=== PATIENT | male | born 1985 | race Caucasian/White ===

== ENCOUNTER 2020-12-19 20:33 | Emergency (ER) | payer SELFPAY ==
[2020-12-19 20:34] VITALS: BP 128/79; PULSE 113; RESP 15; TEMP 36.8; O2SAT 98; BMI 29.2
[2020-12-19] MEDS: 0.9% Normal Saline 1,000 ML 1000 ML IV (21:25)
[2020-12-19] MEDS: Ondansetron 4 MG/2 ML Vial IV (21:25)
[2020-12-19] MEDS: Mag Hydrox/Al Hydrox/Simeth 30 ML UDC PO (21:25)
[2020-12-19 21:35] LABS: Absolute Lymphocyte Count 1.31 X10^3/uL (0.83-4.51); Absolute Neutrophil Count 7.5 X10^3/uL (2.0-7.7); Basophil# 0.04 X10^3/uL; Basophil% 0.4 % (0-1); Eosinophil# 0.04 X10^3/uL; Eosinophils% 0.4 % (0-5); Hematocrit 47.4 % (40-54); Hemoglobin 16.3 g/dL (13.0-16.5); Lymphocyte # 1.31 X10^3/ul (0.83-4.51); Lymphocyte % 13.4 % (19-41); Mean Corp Hgb Conc 34.4 g/dL (32-36); Mean Corpuscular Hgb 30.2 pg (27.0-32.0); Mean Corpuscular Volume 87.8 fL (80-94); Mean Platelet Vol. 10.3 fl (6.2-12.0); Monocyte# 0.77 X10^3/uL; Monocyte% 7.9 % (0-10); NRBC Flagged by Analyzer 0 % (0-5); Neutrophil # 7.54 X10^3/uL (2.7-7.7); Neutrophil % 77.5 % (47-70); Platelet Count 220 K/mm3 (150-450); RBC Distribution Width CV 12.7 % (11.6-14.6); RBC Distribution Width SD 41.1 fl (35.1-43.9); White Blood Count 9.7 K/mm3 (4.4-11.0)
--- NOTE | 2020-12-19 21:35 | EDS_ITS ---
HPI History of Present Illness Chief Complaint: Abd Pain Informant: patient Narrative Narrative: Patient is a 35-year-old male who presents to the emergency department for abdominal pain, nausea/vomiting and diarrhea. Symptoms have been present over the past 3 days. He states that he was recently treated for H. pylori infection 1 month ago and completed course of antibiotics. He did have a colonoscopy at that time which was negative for Crohn's disease. He states he was improved until the past few days. He has not been take anything for symptoms. He has diffuse abdominal pain. Currently rates as a 7 out of 10. No one spot hurts worse than another. No other abdominal surgeries. He denies any urinary symptoms. No chest pain or shortness of breath. No fevers or chills. No known sick contacts. He has not been coughing. [facility] Medical History (Updated 12/19/20 @ 22:[address] Andres Hayward DO) H. pylori infection Hepatomegaly Home Medications pantoprazole [Protonix] 40 mg PO DAILY #30 tab 12/19/20 [Rx Last Taken Unknown] Allergy/AdvReac Type Severity Reaction Status Date / Time No Known Allergies Allergy Verified 12/19/20 20:34 Surgical History (Updated 12/19/20 @ 20:58 by Johnnie Trevino) History of colonoscopy History of endoscopy Social History Smoking Status: Never smoker ROS ROS ED Constitutional Constitutional ED: Denies chills or fever(s) Eyes Eyes: Denies change in vision ENT ENT ED: Denies epistaxis or rhinorrhea Cardiovascular Cardiovascular: Denies chest pain or palpitations Respiratory/Chest Respiratory/Chest: Denies cough, dyspnea or dyspnea on exertion Gastrointestinal Gastrointestinal: Reports abdominal pain, diarrhea, nausea and vomiting; Denies constipation or melena Genitourinary Genitourinary ED: Denies dysuria, hematuria or urinary frequency Musculoskeletal Musculoskeletal: Denies back pain or neck pain Integumentary Denies rash Neurologic Neurologic: Denies dizziness, headache(s) or weakness EXAM Physical Exam Const Vital Signs: 12/19/20 20:34 12/19/20 22:20 Temperature 98.2 F Temperature Source Temporal Pulse Rate 113 H 88 Respiratory Rate 15 16 Blood Pressure 128/79 H 114/73 Blood Pressure Mean 95 86 Pulse Ox 98 95 Oxygen Delivery Method Room Air Room Air Positive well nourished and well developed General Appearance ED: well developed and NAD HEENT Reports normocephalic, head/scalp atraumatic and moist mucous membranes Eyes PERRL and EOMs intact bilaterally Neck supple Chest Wall inspection of chest normal Resp normal respiratory effort and clear to auscultation bilaterally Auscultation: Negative for rales, rhonchi or wheezes Cardio regular rate, regular rhythm and no murmurs GI normal to inspection, nondistended, normoactive bowel sounds GI Narrative: Diffuse tenderness. Negative Wright sign. No peritoneal signs. Palpation: soft; Negative for guarding or rebound tenderness present Back/Spine no CVA tenderness Extremity normal to inspection General Extremety ED: Negative for edema or tenderness General Extremity: Negative for edema Neuro oriented x3, CN's II-XII intact bilaterally and no sensory deficits noted Sensorium / Orientation: alert Motor Exam: strength 5/5 throughout Psych mental status grossly normal Skin no rashes or lesions noted MDM MDM MDM Narrative Medical decision making narrative: Patient presents to ED for diffuse abdominal pain nausea/vomiting and diarrhea. Is been going for 3 days. On arrival to the ED he is tachycardic but otherwise normal vital signs. He is in no acute distress. Besides abdominal tenderness he has a benign physical exam. Will check basic lab work and treat symptomatically with a dose of Zofran, GI cocktail and IV fluids. Patient's heart rate has come down with IV fluids. On reexamination he is feeling much better. He feels like the GI cocktail gave him good relief. He does not have a high white blood cell count. Electrolytes within normal limits. Only ALT is mildly elevated. Lipase within normal limits. We will treat him symptomatically at home with a prescription for Protonix. He is given referral for PCP as he is new to the area. Return precautions are reviewed. At this time I have low concern for intra-abdominal surgical pathology. No imaging indicated. Discharged home in stable condition. All questions were answered. Lab Data Labs: Laboratory Results - last 24 hr 12/19/20 12/19/20 21:25 21:25 WBC 9.7 RBC 5.40 Hgb 16.3 Hct 47.4 MCV 87.8 MCH 30.2 MCHC 34.4 RDW Std Deviation 41.1 RDW Coeff of Andrey 12.7 Plt Count 220 MPV 10.3 Immature Gran % (Auto) 0.400 Neut % (Auto) 77.5 H Lymph % (Auto) 13.4 L Barron % (Auto) 7.9 Eos % (Auto) 0.4 Baso % (Auto) 0.4 Absolute Neuts (auto) 7.5 Absolute Lymphs (auto) 1.31 Nucleated RBC % 0 Sodium 137 Potassium 3.5 Chloride 104 Carbon Dioxide 25.0 Anion Gap 8 BUN 12 Creatinine 1.17 Estim Creat Clear Calc 90.12 Est GFR (MDRD) Af Amer 91 Est GFR (MDRD) Non-Af 75 BUN/Creatinine Ratio 10.3 Glucose 108 H Calcium 8.8 Total Bilirubin 0.80 AST 37 ALT 92 H Alkaline Phosphatase 82 Total Protein 7.5 Albumin 3.7 Globulin 3.8 Albumin/Globulin Ratio 1.0 Lipase 98 Discharge Plan Triage Chief Complaint: Abd Pain ED Provider: Andres Hayward Dx/Rx/DC Orders Clinical Impression: Abdominal pain Instructions: Abdominal Pain Prescriptions: New pantoprazole [Protonix] 40 mg tablet,delayed release (DR/EC) 40 mg PO DAILY Qty: 30 RF: 0 Primary Care Provider: Care Physician,No Primary Referrals: Ann Marie Parra MD [STAFF PHYSICIAN] - 3-5 Days Care Physician,No Primary [Primary Care Provider] - Disposition Disposition: Home, Self Care Discharge Date/Time: 12/19/20 22:25
[2020-12-19 21:53] LABS: AST(SGOT) 37 U/L (15-37); Alanine Aminotransfer ALT/SGPT 92 U/L (16-61); Albumin, Serum 3.7 g/dL (3.2-5.0); Alkaline Phosphatase 82 U/L (45-117); Anion Gap 8 (5-15); BUN 12 mg/dL (7-18); BUN/Creat Ratio 10.3 RATIO (10-20); Calcium,Total 8.8 mg/dL (8.5-10.1); Chloride 104 mmol/L (98-107); Creatinine, Serum 1.17 mg/dL (0.70-1.30); EST Glomerular Filtration Rate 75 mL/min (>60); Est Glom Filt Rate - Afr Amer 91 mL/min (>60); Estimated Creatinine Clearance 90.12 ml/min; Globulin 3.8 g/dL (2.2-4.2); Glucose 108 mg/dL (74-106); Lipase 98 U/L (73-393); Potassium 3.5 mmol/L (3.5-5.1); Protein, Total 7.5 g/dL (6.4-8.2); Sodium Level 137 mmol/L (136-145)
[2020-12-19 22:20] VITALS: BP 114/73; PULSE 88; RESP 16; O2SAT 95
== END 2020-12-19 22:25 | disposition home or self-care (01) ==
PROVIDERS: Emergency Provider Emergency Medicine
DX: R10.84 Generalized abdominal pain (principal); R11.2 Nausea with vomiting, unspecified; R19.7 Diarrhea, unspecified
CPT/HCPCS: 80053; 83690; 85025; 96361; 96374; 99284; J7030; J2405

== ENCOUNTER → 2021-10-10 | Outpatient (CLI) | payer MEDICAID, SELFPAY ==
[2021-10-10 16:10] LABS: Absolute Lymphocyte Count 2.32 X10^3/uL (0.83-4.51); Absolute Neutrophil Count 3.1 X10^3/uL (2.0-7.7); Basophil% 1.6 % (0-1); Eosinophil# 0.31 X10^3/uL; Eosinophils% 4.8 % (0-5); Hematocrit 51.2 % (40-54); Hemoglobin 17.6 g/dL (13.0-16.5); Lymphocyte # 2.32 X10^3/ul (0.83-4.51); Lymphocyte % 36.2 % (19-41); Mean Corp Hgb Conc 34.4 g/dL (32-36); Mean Corpuscular Hgb 29.8 pg (27.0-32.0); Mean Corpuscular Volume 86.8 fL (80-94); Monocyte# 0.57 X10^3/uL; Monocyte% 8.9 % (0-10); NRBC Flagged by Analyzer 0 % (0-5); Neutrophil % 48.3 % (47-70); Platelet Count 298 K/mm3 (150-450); RBC Distribution Width CV 12.5 % (11.6-14.6); RBC Distribution Width SD 39.8 fl (35.1-43.9); White Blood Count 6.4 K/mm3 (4.4-11.0)
[2021-10-10 16:16] LABS: International Normalized Ratio 0.9
[2021-10-10 16:29] LABS: Erythrocyte Sedimentation Rate 4 mm/hr (0-20)
[2021-10-10 16:40] LABS: ALB/GLOB Ratio 1.2 RATIO (0.9-2.4); AST(SGOT) 34 U/L (15-37); Alanine Aminotransfer ALT/SGPT 84 U/L (16-61); Albumin, Serum 4.4 g/dL (3.2-5.0); Alkaline Phosphatase 73 U/L (45-117); Anion Gap 6 (5-15); BUN 10 mg/dL (7-18); BUN/Creat Ratio 10.5 RATIO (10-20); CRP < 2.90 mg/L (0.0-3.0); Calcium,Total 9.3 mg/dL (8.5-10.1); Chloride 103 mmol/L (98-107); Creatinine, Serum 0.96 mg/dL (0.70-1.30); EST Glomerular Filtration Rate 94 mL/min (>60); Est Glom Filt Rate - Afr Amer 114 mL/min (>60); Ferritin 123 ng/mL (26-388); Globulin 3.7 g/dL (2.2-4.2); Glucose 86 mg/dL (74-106); LDH 189 U/L (87-241); Potassium 3.9 mmol/L (3.5-5.1); Protein, Total 8.1 g/dL (6.4-8.2); Sodium Level 138 mmol/L (136-145)
[2021-10-10 16:43] LABS: Hemoglobin A1c 5.3 % (3.8-5.6)
[2021-10-10 17:03] LABS: HIV - WCH Non-Reactive (Nonreactive)
[2021-10-14 14:09] LABS: Anti-Centromere B Ab <0.2 AI (0.0-0.9); Anti-Chromatin <0.2 AI (0.0-0.9); Anti-Jo <0.2 AI (0.0-0.9); Anti-Scleroderma-70 AB <0.2 AI (0.0-0.9); RNP Ab <0.2 AI (0.0-0.9); SJOGREN'S Anti-SS-A test < 0.2 AI (0.0-0.9); SJOGREN'S Anti-SS-B test < 0.2 AI (0.0-0.9); Smith Ab <0.2 AI (0.0-0.9)
[2021-10-14 15:22] LABS: Anti-Mitochondrial AB <20.0 Units (0.0-20.0); Anti-dsDNA Ab 9 IU/mL (0-9)
[2021-10-17 06:09] LABS: Angiotensin Convert Enzyme 54 U/L (14-82); Ceruloplasmin 18.6 mg/dL (16.0-31.0); Cytoplasmic Ab (C-ANCA) <1:20 titer (Neg:<1:20); HEPATITIS B SURFACE AG Negative (Negative); Hep C Antibodies <0.1 s/co ratio (0.0-0.9); Hepatitis A IgM Antibody Negative (Negative); Hepatitis B Core AB IgM Negative (Negative)
[2021-10-17 10:39] LABS: AFP, Tumor Marker 6.2 ng/mL (0.0-6.9); Anti-Smooth Muscle ABS 8 Units (0-19); Copper, Serum or Plasma 111 ug/dL (69-132); Haptoglobin 107 mg/dL (17-317); Perinuclear Ab (P-ANCA) <1:20 titer (Neg:<1:20)
== END | disposition home or self-care (01) ==
LOC: LAB 15:35
PROVIDERS: Referring Provider Nurse Practitioner Adult Health; Visit Provider Nurse Practitioner Adult Health
DX: K76.0 Fatty (change of) liver, not elsewhere classified (principal)
CPT/HCPCS: 36415; 80053; 80074; 82105; 82140; 82164; 82390; 82525; 82728; 83010; 83036; 83516; 83615; 85025; 85610; 85652; 86140; 86225; 86235; 86256; 86703

== ENCOUNTER → 2021-10-12 | Outpatient (CLI) | payer MEDICAID, SELFPAY ==
[2021-10-15 16:31] LABS: H. PYLORI STOOL AG Negative (Negative)
== END | disposition home or self-care (01) ==
LOC: LABSPEC 13:50
PROVIDERS: Visit Provider Nurse Practitioner Adult Health
DX: R10.9 Unspecified abdominal pain (principal); Z86.19 Personal history of other infectious and parasitic diseases

== ENCOUNTER 2021-10-13 21:01 | Emergency (ER) | payer MEDICAID, SELFPAY ==
[2021-10-13 21:02] VITALS: BP 122/90; PULSE 91; RESP 16; TEMP 36.6; O2SAT 97; BMI 28.7
--- NOTE | 2021-10-13 21:51 | CT_ITS ---
STUDY: CT ABDOMEN AND PELVIS WITH CONTRAST REASON FOR EXAM: Male, 35 years old. Epigastric abdominal pain x several months, constipation. RADIATION DOSAGE (If Supplied By Facility): CTDIvol = ( 13.74 ) mGy, DLP = ( 1085.32 ) mGycm TECHNIQUE: Transaxial images were obtained from the dome of the diaphragm to the symphysis pubis without oral contrast. IV 100mL Isovue-300 was administered. Sagittal and coronal images were reconstructed. Individualized dose optimization techniques were used for this CT. COMPARISON: None. FINDINGS: The visualized lung bases are unremarkable. The visualized portions of the heart are within normal limits. There is decreased attenuation of the liver consistent with steatosis. Normal gallbladder and extrahepatic biliary system. Normal spleen. Normal pancreas. Normal bilateral adrenal glands. Normal right kidney. Simple left renal cyst. No required imaging follow-up needed given high likelihood of benign nature. Normal visualized stomach. Normal small intestine. Normal colon. The appendix is visualized and appears normal. Normal abdominal aorta. Normal inferior vena cava. Normal retroperitoneum. Normal urinary bladder. Normal abdominal wall. Normal osseous structures. CT/Abdomen/Pelvis W IV Cont ONLY IMPRESSION: No acute inflammatory process or bowel obstruction. Electronically Signed: Natanael Nunez MD ([place]) at 22:50 EDT ,
--- NOTE | 2021-10-13 21:52 | EDS_ITS ---
HPI HPI - GI History of Present Illness Chief Complaint: Abd Pain Narrative Narrative: 35-year-old male presenting with abdominal pain. He describes it as diffuse. He states that this has been going on for months. He states that previously see he was prescribed a laxative which did help when he used it but did not repeat using it. He states he does not take anything for his abdominal pain to treat pain. No ibuprofen or Tylenol. Patient also complaining of xiphoid pain. This is not a new issue either. He states is actually improving and was as big as a golf ball about a month ago. He states he was seen outpatient and a CAT scan was ordered however he has not been called back to have this performed. Patient has not had any fever, chills. He is not vomiting. He does report history of GERD for which he takes Protonix and sulcal fate. [facility] Medical History Constipation Fatty liver H. pylori infection Hepatomegaly History of Helicobacter pylori infection Xiphoid prominence Home Medications escitalopram oxalate 20 mg tablet 20 mg PO DAILY 09/02/21 [History Last Taken Unknown] pantoprazole 40 mg tablet,delayed release 40 mg PO BID #120 tab 10/10/21 [Rx Last Taken Unknown] sucralfate 1 gram tablet 1 g PO QAC #90 tab 10/10/21 [Rx Last Taken Unknown] Allergy/AdvReac Type Severity Reaction Status Date / Time No Known Allergies Allergy Verified 10/13/21 21:04 Surgical History History of colonoscopy History of endoscopy Social History Smoking Status: Never smoker ROS ROS ED Constitutional Constitutional ED: Denies chills or fever(s) ENT ENT ED: Denies rhinorrhea Cardiovascular Cardiovascular: Denies chest pain or palpitations Respiratory/Chest Respiratory/Chest: Denies cough or dyspnea Gastrointestinal Gastrointestinal: Reports abdominal pain and constipation; Denies nausea or vomiting Genitourinary Genitourinary ED: Denies dysuria or hematuria Musculoskeletal Musculoskeletal: Denies myalgias Integumentary Denies rash Neurologic Neurologic: Denies headache(s) Psychiatric Psychiatric: Denies depression Endocrine Endocrinology: Denies polydipsia or polyuria Hematologic/Lymphatic Hematologic/Lymphatic: Denies easy bruising EXAM Physical Exam Const Vital Signs: 10/13/21 21:02 Temperature 98 F Temperature Source Temporal Pulse Rate 91 Respiratory Rate 16 Blood Pressure 122/90 H Blood Pressure Mean 100 Pulse Ox 97 Oxygen Delivery Method Room Air Positive well nourished General Appearance ED: NAD HEENT normocephalic and atraumatic Eyes PERRL and EOMs intact bilaterally General Eye ED: Negative for pale conjunctiva or scleral icterus Neck No no lymphadenopathy and No supple Chest Wall Chest Narrative: Tenderness over the xiphoid. No deformity Resp normal respiratory effort and clear to auscultation bilaterally Cardio regular rate and regular rhythm GI non-distended Palpation: soft; Negative for guarding or rigid Neuro Sensorium / Orientation: alert, oriented to person, oriented to place and oriented to time Psych mental status grossly normal and thought process normal Skin Lesions: no lesions Rashes: no rashes MDM MDM MDM Narrative Medical decision making narrative: Patient presenting with chronic abdominal pain and history of constipation as well as tenderness over his xiphoid. Abdominal exam is benign. Patient expressing concern that his abdomen is hurting worse. He is not tried anything for pain prior to arrival. He has not tried any kind of stool softener or laxative for his constipation. I obtained blood work and his CBC and CMP are unremarkable. Urinalysis negative. CT of the abdomen pelvis negative for any acute findings. Patient counseled his work- up is otherwise normal. He is counseled for his constipation issues she should buy some MiraLAX and use this nightly for a couple of days. As far as his xiphoid pain goes I am unsure what the etiology/source of his pain is but there is nothing acute noted. Patient discharged home in stable condition. Impression: 1. Abdominal pain unknown cause 2. Xiphoid pain 3. History of constipation Lab Data Attestation: I reviewed the patient's lab results. Labs: Laboratory Results - last 24 hr 10/13/21 10/13/21 10/13/21 22:23 22:23 22:23 WBC 9.7 RBC 5.42 Hgb 16.1 Hct 47.0 MCV 86.7 MCH 29.7 MCHC 34.3 RDW Std Deviation 39.8 RDW Coeff of Andrey 12.7 Plt Count 264 MPV 9.7 Immature Gran % (Auto) 0.300 Neut % (Auto) 48.1 Lymph % (Auto) 37.3 Teller % (Auto) 9.3 Eos % (Auto) 4.0 Baso % (Auto) 1.0 Absolute Neuts (auto) 4.7 Absolute Lymphs (auto) 3.63 Nucleated RBC % 0 Sodium 140 Potassium 3.9 Chloride 106 Carbon Dioxide 28.0 Anion Gap 6 BUN 16 Creatinine 1.04 Estim Creat Clear Calc 101.39 Est GFR (MDRD) Af Amer 103 Est GFR (MDRD) Non-Af 86 BUN/Creatinine Ratio 15.4 Glucose 92 Calcium 9.3 Total Bilirubin 0.30 AST 28 ALT 73 H Alkaline Phosphatase 73 Total Protein 7.5 Albumin 4.2 Globulin 3.3 Albumin/Globulin Ratio 1.3 Lipase 187 Urine Color Yellow Urine Clarity Clear Urine pH 6.0 Ur Specific [place] 1.020 Urine Protein 15 H Urine Glucose (UA) Normal Urine Ketones Negative Urine Occult Blood Negative Urine Nitrite Negative Urine Bilirubin Negative Urine Urobilinogen Normal Ur Leukocyte Esterase Negative Urine RBC 0 SEEN Urine WBC 0 SEEN Ur Squamous Epith Cells 0 SEEN Urine Bacteria 0 SEEN Urine Mucus 0 SEEN Radiography Diagnostic Testing: Clinical Impression(s) from Imaging Studies Abdomen/Pelvis CT 10/13/21 21:51 IMPRESSION: No acute inflammatory process or bowel obstruction. Electronically Signed: Natanael Nunez MD ([place]) at 22:50 EDT Reading Location ID and State: [facility] / [place] , Service support , Discharge Plan Triage Chief Complaint: Abd Pain ED Provider: Олег Lopes Dx/Rx/DC Orders Instructions: ED Abdominal Pain Unkn Cause Male... Prescriptions: No Action escitalopram oxalate 20 mg tablet 20 mg PO DAILY RF: 0 pantoprazole [Protonix] 40 mg tablet,delayed release (DR/EC) 40 mg PO BID Qty: 120 RF: 1 sucralfate 1 gram tablet 1 g PO QAC Qty: 90 RF: 0 Primary Care Provider: Care Physician,No Primary Referrals: Care Physician,No Primary [Primary Care Provider] - Disposition Disposition: Home, Self Care
[2021-10-13] MEDS: Ketorolac 15 MG/ML Vial IV (22:18)
[2021-10-13] MEDS: Metoclopramide 10 MG/2 ML Vial IV (22:18)
[2021-10-13] MEDS: 0.9% Normal Saline 1,000 ML 1000 ML IV (22:19)
[2021-10-13 22:28] LABS: Bacteria 0 SEEN /hpf (None Seen); Mucous, Urine 0 SEEN /hpf (<or=2+); Red Blood Cells-Urine 0 SEEN /hpf (0-5); Squamous Epithelial Cells - UA 0 SEEN /hpf (0-5); White Blood Cells 0 SEEN /hpf (0-5)
[2021-10-13 22:29] LABS: Absolute Lymphocyte Count 3.63 X10^3/uL (0.83-4.51); Absolute Neutrophil Count 4.7 X10^3/uL (2.0-7.7); Eosinophil# 0.39 X10^3/uL; Glucose, Dipstick Normal (Normal); Hemoglobin 16.1 g/dL (13.0-16.5); Ketone-Dipstick Negative (Negative); Leukocyte Esterase-Dipstick Negative /ul (Negative); Lymphocyte # 3.63 X10^3/ul (0.83-4.51); Lymphocyte % 37.3 % (19-41); Mean Corp Hgb Conc 34.3 g/dL (32-36); Mean Corpuscular Hgb 29.7 pg (27.0-32.0); Mean Corpuscular Volume 86.7 fL (80-94); Mean Platelet Vol. 9.7 fl (6.2-12.0); Monocyte% 9.3 % (0-10); NRBC Flagged by Analyzer 0 % (0-5); Neutrophil # 4.67 X10^3/uL (2.7-7.7); Neutrophil % 48.1 % (47-70); Nitrite-Dipstick Negative (Negative); Occult Blood-Urine Negative /ul (Negative); Platelet Count 264 K/mm3 (150-450); Protein-Dipstick 15 mg/dl (Negative); RBC Distribution Width CV 12.7 % (11.6-14.6); RBC Distribution Width SD 39.8 fl (35.1-43.9); Red Blood Count 5.42 M/mm3 (4.6-6.2); Urine Bilirubin Dipstick Negative (Negative); Urine Urobilinogen Normal (Normal); White Blood Count 9.7 K/mm3 (4.4-11.0)
[2021-10-13 22:30] LABS: Color, Urine Yellow (Yellow); Urine Clarity Clear (Clear)
[2021-10-13 22:45] LABS: ALB/GLOB Ratio 1.3 RATIO (0.9-2.4); AST(SGOT) 28 U/L (15-37); Alanine Aminotransfer ALT/SGPT 73 U/L (16-61); Albumin, Serum 4.2 g/dL (3.2-5.0); Alkaline Phosphatase 73 U/L (45-117); Anion Gap 6 (5-15); BUN 16 mg/dL (7-18); BUN/Creat Ratio 15.4 RATIO (10-20); Calcium,Total 9.3 mg/dL (8.5-10.1); Chloride 106 mmol/L (98-107); Creatinine, Serum 1.04 mg/dL (0.70-1.30); EST Glomerular Filtration Rate 86 mL/min (>60); Est Glom Filt Rate - Afr Amer 103 mL/min (>60); Estimated Creatinine Clearance 101.39 ml/min; Globulin 3.3 g/dL (2.2-4.2); Glucose 92 mg/dL (74-106); Lipase 187 U/L (73-393); Potassium 3.9 mmol/L (3.5-5.1); Protein, Total 7.5 g/dL (6.4-8.2); Sodium Level 140 mmol/L (136-145)
== END 2021-10-13 23:36 | disposition home or self-care (01) ==
PROVIDERS: Emergency Provider Student in an Organized Health Care Education/Training Program; Visit Provider Student in an Organized Health Care Education/Training Program
DX: R10.84 Generalized abdominal pain (principal); G89.29 Other chronic pain; M94.9 Disorder of cartilage, unspecified; K21.9 Gastro-esophageal reflux disease without esophagitis; Z79.899 Other long term (current) drug therapy
CPT/HCPCS: 74177; 80053; 81001; 83690; 85025; 96361; 96374; 96375; 99283; J7030; Q9967; A4216

== ENCOUNTER → 2021-10-28 | Outpatient (CLI) | payer MEDICAID, SELFPAY ==
--- NOTE | 2021-10-28 09:36 | US_ITS ---
STUDY: ABDOMINAL ULTRASOUND - ELASTOGRAPHY REASON FOR VISIT: Male, 35 years old. Fatty attrition of the liver. TECHNIQUE: Liver stiffness measurements were obtained on a pMDsoft RS 85 ultrasound machine using a CA 1-7 probe following the SRU guidelines. 3 measurements were obtained using a 2-D-SWE method. The IQR/M was 20% suggesting a quality data set. TECHNICAL QUALITY: Adequate. COMPARISON: Comparison is made with prior study done earlier in the day. FINDINGS: Liver: Fatty infiltration of the liver. Median liver stiffness measured 5.7 kPa. US/Elastography Parenchyma/Organ IMPRESSION: Liver stiffness measures 5.7 kPa compatible with F0-F1 (Normal to mild liver fibrosis) Metavir score. Electronically Signed: Humble Denis MD at 9:20 EDT ,
--- NOTE | 2021-10-28 09:36 | US_ITS ---
STUDY: ABDOMINAL ULTRASOUND - RIGHT UPPER QUADRANT REASON FOR VISIT: Male, 35 years old liver eval for elastography TECHNIQUE: Ultrasound evaluation of the right upper quadrant was performed with real-time and static marc-scale imaging. TECHNICAL QUALITY: Adequate. COMPARISON: None. FINDINGS: Liver: The liver measures 15.9 cm. There is increased echogenicity consistent with fatty infiltration. Focal fatty sparing is seen adjacent to the gallbladder fossa. Tithe bile ducts are within normal limits. There is hepatic color flow. The direction of portal flow is hepatopetal. There is no demonstrated mass lesion. Gallbladder: Normal distended gallbladder. The gallbladder wall measures 1.7 mm. There is a negative sonographic Wright''s sign. There is no pericholecystic fluid. There are no gallstones. Common Bile Duct (C.B.D.): The common bile duct measures 3.1 mm. Pancreas: Normal size of the head, body and tail of the pancreas. There is normal echogenicity of the pancreas. There is no demonstrated pancreatic mass or cyst. Right Kidney: Normal size of the right kidney. The right kidney measures 11.3 cm x 5.5 cm x 4.7 cm. Normal renal cortex. The right cortex measures 1.2 cm. There is no demonstrated renal mass or cyst. There is no right hydronephrosis. US/Abdomen Limited IMPRESSION: Fatty infiltration of the liver with focal fatty sparing in the region of the gallbladder fossa. Electronically Signed: Humble Denis MD at 9:18 EDT ,
== END | disposition home or self-care (01) ==
LOC: US 09:35
PROVIDERS: Referring Provider Nurse Practitioner Adult Health; Visit Provider Nurse Practitioner Adult Health
DX: K76.0 Fatty (change of) liver, not elsewhere classified (principal)
CPT/HCPCS: 76705; 76981

== ENCOUNTER 2023-04-27 19:36 | Observation (INO) | payer MEDICAID, SELFPAY ==
[2023-04-27 19:37] VITALS: BP 118/78; PULSE 130; RESP 18; TEMP 37.2; O2SAT 99; BMI 30.6
[2023-04-27 19:55] LABS: Bacteria 0 SEEN /hpf (None Seen); Red Blood Cells-Urine 0 SEEN /hpf (0-5); Squamous Epithelial Cells - UA 0 SEEN /hpf (0-5)
[2023-04-27 19:58] LABS: Absolute Lymphocyte Count 0.73 X10^3/uL (0.83-4.51); Absolute Neutrophil Count 13.7 X10^3/uL (2.0-7.7); Basophil# 0.04 X10^3/uL; Basophil% 0.3 % (0-1); Eosinophil# 0.02 X10^3/uL; Eosinophils% 0.1 % (0-5); Hematocrit 49.2 % (40-54); Hemoglobin 16.7 g/dL (13.0-16.5); Lymphocyte # 0.73 X10^3/ul (0.83-4.51); Lymphocyte % 4.8 % (19-41); Mean Corp Hgb Conc 33.9 g/dL (32-36); Mean Corpuscular Hgb 29.3 pg (27.0-32.0); Mean Corpuscular Volume 86.5 fL (80-94); Monocyte# 0.84 X10^3/uL; Monocyte% 5.5 % (0-10); NRBC Flagged by Analyzer 0 % (0-5); Neutrophil # 13.67 X10^3/uL (2.7-7.7); Platelet Count 270 K/mm3 (150-450); RBC Distribution Width CV 12.7 % (11.6-14.6); RBC Distribution Width SD 39.8 fl (35.1-43.9); Red Blood Count 5.69 M/mm3 (4.6-6.2); White Blood Count 15.3 K/mm3 (4.4-11.0)
[2023-04-27 19:59] LABS: Color, Urine Yellow (Yellow); Glucose, Dipstick Normal (Normal); Ketone-Dipstick 5 mg/dl (Negative); Leukocyte Esterase-Dipstick 25 /ul (Negative); Nitrite-Dipstick Negative (Negative); Occult Blood-Urine Negative /ul (Negative); Protein-Dipstick 15 mg/dl (Negative); Specific Gravity, Urine 1.015 (1.002-1.030); Urine Clarity Clear (Clear); Urine Urobilinogen 4 mg/dl (Normal); Urine pH 6.5 (5.0 - 8.0)
[2023-04-27 20:07] LABS: Urine Bilirubin Dipstick 1 mg/dL (Negative)
[2023-04-27 20:10] LABS: Mucous, Urine 1+ /hpf (<or=2+); White Blood Cells 0-5 SEEN /hpf (0-5)
[2023-04-27 20:14] LABS: ALB/GLOB Ratio 1.1 RATIO (0.9-2.4); AST(SGOT) 23 U/L (15-37); Alanine Aminotransfer ALT/SGPT 72 U/L (16-61); Albumin, Serum 3.9 g/dL (3.2-5.0); Alkaline Phosphatase 82 U/L (45-117); Anion Gap 6 (5-15); BUN 11 mg/dL (7-18); BUN/Creat Ratio 9.2 RATIO (10-20); Chloride 104 mmol/L (98-107); EST Glomerular Filtration Rate 72 mL/min (>60); Est Glom Filt Rate - Afr Amer 87 mL/min (>60); Estimated Creatinine Clearance 86.18 ml/min; Globulin 3.6 g/dL (2.2-4.2); Glucose 112 mg/dL (74-106); Potassium 3.6 mmol/L (3.5-5.1); Protein, Total 7.5 g/dL (6.4-8.2); Sodium Level 137 mmol/L (136-145)
[2023-04-27 21:00] VITALS: BP 113/74; PULSE 134; RESP 22; O2SAT 97
--- NOTE | 2023-04-27 21:07 | CT_ITS ---
EXAM: CT ABDOMEN AND PELVIS WITH INTRAVENOUS CONTRAST CLINICAL INDICATION: RLQ Pain TECHNIQUE: Helically acquired images were obtained of the abdomen and pelvis with intravenous contrast. This CT exam was performed using one or more of the following dose reduction techniques: automated exposure control, adjustment of the mA and/or kV according to patient size, and/or use of iterative reconstruction technique. CONTRAST: IV 100mL Isovue-370 COMPARISON: CT abdomen and pelvis, 10/13/2021 FINDINGS: LOWER THORAX: No significant abnormality. Lung bases are clear. No cardiomegaly. No significant pericardial effusion. ABDOMEN: LIVER: Diffuse low-attenuation throughout the liver consistent with fatty infiltration. Areas of relative sparing are identified. GALLBLADDER AND BILE DUCTS: No significant abnormality. No calcified gallstones. No gallbladder distention or wall edema. No intra- or extrahepatic biliary ductal dilation. PANCREAS: No significant abnormality. No focal cystic or solid mass. SPLEEN: No significant abnormality. Normal size without focal cystic or solid mass. ADRENALS: No significant abnormality. No nodules. KIDNEYS AND URETERS: No significant abnormality. Normal renal size and position. No hydronephrosis. STOMACH AND BOWEL: No significant abnormality. No stomach or bowel distention. No focal inflammatory change. PELVIS: APPENDIX: Normal appendix identified in the right lower quadrant. BLADDER: No significant abnormality. REPRODUCTIVE: Normal as visualized. No mass. ABDOMEN and PELVIS: INTRAPERITONEAL SPACE: No significant abnormality. No ascites or other fluid collection. No free air. BONES/JOINTS: No significant abnormality. No suspicious lytic or blastic abnormality. SOFT TISSUES: No significant abnormality. No discrete abdominal or pelvic wall hernia. VASCULATURE: No significant abnormality. Abdominal aorta is non-dilated. LYMPH NODES: No significant abnormality. No enlarged lymph nodes. CT/Abdomen/Pelvis W IV Cont ONLY IMPRESSION: 1. No evidence of acute appendicitis or other acute visceral pathology in the abdomen and pelvis. 2. Fatty liver. Electronically Signed: Regulo Negrete DO at 21:35 EST ,
--- NOTE | 2023-04-27 21:32 | EDS_ITS ---
HPI History of Present Illness Chief Complaint: Abd Pain Informant: patient and spouse/S.O. Narrative Narrative: 37-year-old male presenting to the emergency department chief complaint of abdominal pain. Patient states that he really has been feeling well up until today. He has developed 3 episodes of diarrhea and a right-sided abdominal pain. He notes a fever and some myalgias. No vomiting. Notes a history of a hiatal hernia. [facility] Medical History Anxiety Constipation Fatty liver H. pylori infection Hepatomegaly History of Helicobacter pylori infection Xiphoid prominence Home Medications escitalopram oxalate 20 mg tablet 20 mg PO DAILY 09/02/21 [History Last Taken Unknown] pantoprazole 40 mg tablet,delayed release (Protonix) 40 mg PO BID #120 tabs 10/10/21 [Rx Last Taken Unknown] linaclotide 290 mcg capsule (Linzess) 290 mcg PO QAM #90 caps 11/21/21 [Rx Last Taken Unknown] desvenlafaxine succinate 50 mg tablet,extended release 24 hr 50 mg PO DAILY 04/27/23 [History Last Taken Unknown] esomeprazole magnesium 20 mg capsule,delayed release (Nexium) 20 mg PO DAILY 04/27/23 [History Last Taken Unknown] Allergy/AdvReac Type Severity Reaction Status Date / Time No Known Allergies Allergy Verified 04/27/23 19:39 Surgical History H/O arthroscopy of shoulder History of colonoscopy History of endoscopy Social History Smoking Status: Never smoker ROS ROS ED Constitutional Constitutional ED: Reports chills and fever(s); Denies weight loss Eyes Eyes: Denies change in vision or diplopia ENT ENT ED: Denies ear pain, rhinorrhea or sore throat Cardiovascular Cardiovascular: Denies chest pain, orthopnea, palpitations or racing heartbeat Respiratory/Chest Respiratory/Chest: Denies cough, dyspnea or orthopnea Gastrointestinal Gastrointestinal: Reports abdominal pain, diarrhea and nausea; Denies vomiting Genitourinary Genitourinary ED: Denies dysuria, hematuria or urinary frequency Musculoskeletal Musculoskeletal: Denies arthralgias or myalgias Integumentary Denies abscess or rash Neurologic Neurologic: Denies headache(s) or weakness Psychiatric Psychiatric: Denies anxiety, depression, suicidal ideation or suicidal thoughts Endocrine Endocrinology: Denies polydipsia, polyphagia or polyuria Allergic/Immunologic Allergic/Immunologic ED: Denies mouth swelling, tongue swelling or urticaria EXAM Physical Exam Const Vital Signs: 04/27/23 19:37 04/27/23 21:00 04/27/23 22:26 Temperature 99.0 F 99.4 F H Temperature Source Temporal Oral Pulse Rate 130 H 134 H Respiratory Rate 18 22 H Blood Pressure 118/78 113/74 Blood Pressure Mean 91 87 Pulse Ox 99 97 Oxygen Delivery Method Room Air Room Air 04/27/23 23:05 Temperature Temperature Source Pulse Rate 121 H Respiratory Rate 27 H Blood Pressure 101/72 Blood Pressure Mean 81 Pulse Ox 91 Oxygen Delivery Method Room Air Positive well nourished and well developed General Appearance ED: well developed HEENT Reports normocephalic, head/scalp atraumatic and moist mucous membranes Eyes PERRL and EOMs intact bilaterally Neck no lymphadenopathy, supple and no JVD Resp normal respiratory effort and clear to auscultation bilaterally Cardio regular rate, regular rhythm and no murmurs Rate: tachycardic GI Inspection: Negative for abdominal distention Auscultation: normoactive bowel sounds Palpation: soft, tender RLQ and RUQ and guarding; Negative for rebound tenderness present Back/Spine no CVA tenderness and normal ROM Extremity normal to inspection General Extremety ED: Negative for edema General Extremity: Negative for edema Neuro oriented x3 and CN's II-XII intact bilaterally Sensorium / Orientation: alert Motor Exam: strength 5/5 throughout Psych mental status grossly normal Mood & Affect: Negative for depressed or tearful Skin no rashes or lesions noted and no wounds MDM MDM MDM Narrative Medical decision making narrative: Patient's white count is elevated at 15.3 hemoglobin 16.7 and platelet count of 270. BMP with a glucose of 112. Liver enzymes ALT is 72. Urinalysis does not show overt infection. Influenza and COVID-negative. My independent interpretation of the chest x-ray is no acute process. CT of the abdomen pelvis demonstrates no acute process. He received a liter of IV fluids.. The patient's temperature is now up to 100.4 orally. He notes worsening pain on the right side of his abdomen. He remains tachycardic at 125-135 bpm. In short I have a 37-year-old male with right-sided abdominal pain and fever and tachycardia. He has a negative CT scan and a mild leukocytosis of 15. I am going to speak with the hospitalist regarding observational stay tonight. History & Record Review Discussion w/independent historian: Patient and Significant other Lab Data Attestation: I reviewed the patient's lab results. Labs: Laboratory Results - last 24 hr 04/27/23 04/27/23 19:47 19:48 WBC 15.3 H RBC 5.69 Hgb 16.7 H Hct 49.2 MCV 86.5 MCH 29.3 MCHC 33.9 RDW Std Deviation 39.8 RDW Coeff of Andrey 12.7 Plt Count 270 MPV 10.0 Immature Gran % (Auto) 0.300 Neut % (Auto) 89.0 H Lymph % (Auto) 4.8 L [place] % (Auto) 5.5 Eos % (Auto) 0.1 Baso % (Auto) 0.3 Absolute Neuts (auto) 13.7 H Absolute Lymphs (auto) 0.73 L Nucleated RBC % 0 Sodium 137 Potassium 3.6 Chloride 104 Carbon Dioxide 27.0 Anion Gap 6 BUN 11 Creatinine 1.20 Estim Creat Clear Calc 86.18 Est GFR (MDRD) Af Amer 87 Est GFR (MDRD) Non-Af 72 BUN/Creatinine Ratio 9.2 L Glucose 112 H Calcium 9.0 Total Bilirubin 0.80 AST 23 ALT 72 H Alkaline Phosphatase 82 Total Protein 7.5 Albumin 3.9 Globulin 3.6 Albumin/Globulin Ratio 1.1 Urine Color Yellow Urine Clarity Clear Urine pH 6.5 Ur Specific [place] 1.015 Urine Protein 15 H Urine Glucose (UA) Normal Urine Ketones 5 H Urine Occult Blood Negative Urine Nitrite Negative Urine Bilirubin 1 H Urine Urobilinogen 4 H Ur Leukocyte Esterase 25 H Urine RBC 0 SEEN Urine WBC 0-5 SEEN Ur Squamous Epith Cells 0 SEEN Urine Bacteria 0 SEEN Urine Mucus 1+ Radiography Diagnostic Testing: Clinical Impression(s) from Imaging Studies Abdomen/Pelvis CT 04/27/23 21:07 IMPRESSION: 1. No evidence of acute appendicitis or other acute visceral pathology in the abdomen and pelvis. 2. Fatty liver. Electronically Signed: Regulo Negrete DO at 21:35 EST Reading Location ID and State: [facility] / [place] Tel , Service support , Chest X-Ray 04/27/23 22:15 IMPRESSION: No radiographic evidence of acute cardiopulmonary disease. Electronically Signed: Regulo Negrete, DO at 22:41 EST , EKG Initial EKG: Attestation: I personally reviewed and interpreted this EKG as follows: Comments: Sinus tachycardia with a ventricular rate of 127 bpm. Management Discussion w/another healthcare provider: Hospitalist Discharge Plan Dx/Rx/DC Orders Clinical Impression: Abdominal pain, acute, Sinus tachycardia, Acute febrile illness Disposition Disposition: Acute Care Hospital [facility]
--- NOTE | 2023-04-27 22:15 | RAD_ITS ---
EXAM: XR CHEST, 1 VIEW CLINICAL INDICATION: tachycardia TECHNIQUE: Frontal view of the chest. COMPARISON: CT abdomen and pelvis on the same date. FINDINGS: LUNGS AND PLEURAL SPACES: No significant abnormality. No consolidation or edema. No pneumothorax. No effusion. HEART: No significant abnormality. Cardiac silhouette not enlarged. MEDIASTINUM: Central airways and mediastinal contour are unremarkable. BONES/JOINTS: No significant abnormality. No acute fracture. SOFT TISSUES: No significant abnormality. RAD/Chest 1 View (Portable) IMPRESSION: No radiographic evidence of acute cardiopulmonary disease. Electronically Signed: Regulo Negrete DO at 22:41 EST ,
[2023-04-27 22:26] VITALS: TEMP 37.4
[2023-04-27 23:05] VITALS: BP 101/72; PULSE 121; RESP 27; O2SAT 91
--- NOTE | 2023-04-27 23:46 | HP.PCM.HOS_ITS ---
[facility] - General General Date of Admission: 04/28/23 Date of Service: 04/27/23 Chief Complaint: Abdominal pain and diarrhea HPI Narrative ASHA SCHULTE, is a 37 [place]ien M with a past medical history of obesity; with BMI of 30.6 this admission, history of Helicobacter pylori infection; with history of EGD and colonoscopy (2021), fatty liver with hepatomegaly, chronic constipation; on linaclotide, GERD; on esomeprazole, history of hiatal hernia, depression with generalized anxiety plus history of xiphoid prominence who presents to [facility] ER complaining of abdominal pain and diarrhea. Mr. Schulte reports his symptoms began earlier today on 04/27/2023 when he suddenly developed right-sided abdominal pain fol lowed by 3 episodes of nonbloody diarrhea. He admits to fever, myalgias and nausea but denies vomiting, rash or recent travel. He also denies recent antibiotics and no one else in his family including his , children, friends or co-workers are sick with a similar illness. He additionally denies similar previous episodes of this severity. In the ER he was noted to have an elevated white blood cell count of 15.3 present on admission with an elevated temperature of 101 ?F and sinus tachycardia from 125 to [address] scan of the abdomen that was essentially negative except for fatty infiltration of the liver consistent with suspected viral gastroenteritis he was then admitted to the general medical floor under observation status for ongoing care for a stay that is expected to be less than 48 hours. [facility] Medical History Anxiety Constipation Fatty liver H. pylori infection Hepatomegaly History of Helicobacter pylori infection Xiphoid prominence Home Medications escitalopram oxalate 20 mg tablet 20 mg PO DAILY 09/02/21 [History Last Taken Unknown] pantoprazole 40 mg tablet,delayed release (Protonix) 40 mg PO BID #120 tabs 10/10/21 [Rx Last Taken Unknown] linaclotide 290 mcg capsule (Linzess) 290 mcg PO QAM #90 caps 11/21/21 [Rx Last Taken Unknown] desvenlafaxine succinate 50 mg tablet,extended release 24 hr 50 mg PO DAILY 04/27/23 [History Last Taken Unknown] esomeprazole magnesium 20 mg capsule,delayed release (Nexium) 20 mg PO DAILY 04/27/23 [History Last Taken Unknown] Allergy/AdvReac Type Severity Reaction Status Date / Time No Known Allergies Allergy Verified 04/27/23 19:39 Surgical History H/O arthroscopy of shoulder History of colonoscopy History of endoscopy Social History Smoking Status: Never smoker ROS ROS Narrative Review of systems: Constitutional: Patient admits to fever, chills and fatigue with malaise. Eyes: Patient denies visual changes. ENT: Patient denies runny nose, sore throat or ear pain. Cardiovascular: Patient denies chest pain, orthopnea or palpitations. Gastrointestinal: Patient admits to abdominal pain, nonbloody diarrhea and nausea but he denies vomiting. Genitourinary: Patient denies dysuria hematuria or urinary frequency. Musculoskeletal: Patient admits to myalgias. Integumentary: Patient denies abscess or rash. Neurologic: Patient denies headache or focal neurologic deficits. Psychiatric: Patient denies anxiety, depression, suicidal ideation or suicidal thoughts. Endocrine: Patient denies polyuria polydipsia or polyphagia. Allergic: Patient denies mouth swelling tongue swelling or urticaria. 14 point review of systems otherwise negative except for positives noted above in HPI. Vital Signs Vital Signs Vital Signs: 04/27/23 19:37 04/27/23 21:00 04/27/23 22:26 Temperature 99.0 F 99.4 F H Temperature Source Temporal Oral Pulse Rate 130 H 134 H Respiratory Rate 18 22 H Blood Pressure 118/78 113/74 Blood Pressure Mean 91 87 Pulse Ox 99 97 Oxygen Delivery Method Room Air Room Air 04/27/23 23:05 Temperature Temperature Source Pulse Rate 121 H Respiratory Rate 27 H Blood Pressure 101/72 Blood Pressure Mean 81 Pulse Ox 91 Oxygen Delivery Method Room Air Weight Weight: 213 lb 9 oz Body Mass Index (BMI) 30.6 Physical Exam Const alert, oriented x3, average body habitus and well nourished Constitutional Narrative: Patient noted to be in mild distress. General Appearance: cooperative HEENT normocephalic, head/scalp atraumatic, hearing grossly normal bilaterally, moist oral mucous membranes and oropharynx normal Eyes PERRL, EOMs intact bilaterally and conjunctivae normal Neck no lymphadenopathy, supple, no JVD and no carotid bruits Resp normal respiratory effort, no retractions, no use of accessory muscles and clear to auscultation bilaterally Cardio regular rate and regular rhythm Cardio Narrative: Tachycardia noted in the 130s. GI normal to inspection, nondistended, normoactive bowel sounds, soft to palpation, non-tender and non-distended Auscultation: hyperactive bowel sounds Extremity normal to inspection, full ROM and no clubbing, cyanosis or edema Skin Skin Narrative: Patient has no evidence of rash at this time. Neuro oriented x3, CN's II-XII intact bilaterally, moves all extremities and no focal motor deficits Sensorium / Orientation: awake, alert, oriented to person, oriented to place and oriented to time Speech: speech normal Motor Exam: strength 5/5 throughout Psych affect normal Results Medical Records Data Attestation: I reviewed the patient's medical records Lab / Micro Data Attestation: I reviewed the patient's lab results. 04/27/23 19:47 04/27/23 19:47 Labs: Laboratory Results - last 24 hr 04/27/23 19:47: WBC 15.3 H, RBC 5.69, Hgb 16.7 H, Hct 49.2, MCV 86.5, MCH 29.3, MCHC 33.9, RDW Std Deviation 39.8, RDW Coeff of Andrey 12.7, Plt Count 270, MPV 10.0, Immature Gran % (Auto) 0.300, Neut % (Auto) 89.0 H, Lymph % (Auto) 4.8 L, [place] % (Auto) 5.5, Eos % (Auto) 0.1, Baso % (Auto) 0.3, Absolute Neuts (auto) 13.7 H, Absolute Lymphs (auto) 0.73 L, Nucleated RBC % 0, Sodium 137, Potassium 3.6, Chloride 104, Carbon Dioxide 27.0, Anion Gap 6, BUN 11, Creatinine 1.20, Estim Creat Clear Calc 86.18, Est GFR (MDRD) Af Amer 87, Est GFR (MDRD) Non-Af 72, BUN/Creatinine Ratio 9.2 L, Glucose 112 H, Calcium 9.0, Total Bilirubin 0.80, AST 23, ALT 72 H, Alkaline Phosphatase 82, Total Protein 7.5, Albumin 3.9, Globulin 3.6, Albumin/Globulin Ratio 1.1 04/27/23 19:48: Urine Color Yellow, Urine Clarity Clear, Urine pH 6.5, Ur Specific [place] 1.015, Urine Protein 15 H, Urine Glucose (UA) Normal, Urine Ketones 5 H, Urine Occult Blood Negative, Urine Nitrite Negative, Urine Bilirubin 1 H, Urine Urobilinogen 4 H, Ur Leukocyte Esterase 25 H, Urine RBC 0 SEEN, Urine WBC 0-5 SEEN, Ur Squamous Epith Cells 0 SEEN, Urine Bacteria 0 SEEN, Urine Mucus 1+ Micro: Microbiology 04/27/23 21:45 Nasal Secretion SARS-CoV-2 & FLU Antigen (Rapid) - Final Imagaing Radiology Impression Abdomen/Pelvis CT 04/27/23 21:07 IMPRESSION: 1. No evidence of acute appendicitis or other acute visceral pathology in the abdomen and pelvis. 2. Fatty liver. Electronically Signed: Regulo Negrete DO at 21:35 EST , Chest X-Ray 04/27/23 22:15 IMPRESSION: No radiographic evidence of acute cardiopulmonary disease. Electronically Signed: Regulo Negrete at 22:41 EST , Assessment & Plan Assessment/Plan (1) Viral gastroenteritis: (2) Diarrhea: QUALIFIERS: Diarrhea type: presumed infectious Qualified Code(s): R19.7 - Diarrhea, unspecified (3) Abdominal pain, acute: (4) Acute febrile illness: PLAN: Plan 1. Suspected viral gastroenteritis with leukocytosis of 15.3 present on admission and sinus tachycardia with fever of 101 ?F - Admit to general medical floor under observation status under enteric precautions. Given normal saline IV fluid plus as needed Tylenol for 1-10/10 pain or fever. Give Zofran IV as needed for nausea. Finally, we will check stool studies; including C. difficile toxin A&B PCR, fecal WBCs, stool ova and parasites and Hemoccult. 2. Obesity; with BMI of 30.6 admission with fatty liver disease present on CT this admission - Weight loss was recommended. Check TSH. 3. History of Helicobacter pylori; with history of EGD and colonoscopy (2021) - Noted. Patient completed his course of treatment last year. 4. History of chronic constipation; on linaclotide - Hold this agent for now with diarrhea present on admission. 5. History of hiatal hernia with GERD - Stable. 6. Depression with anxiety - Continue home medications as previous. 7. DVT prophylaxis - Lovenox 40 mg subcu daily. Total Time: Approximately 45 minutes. Charges/Coding Visit Charges OBSV E&M: 81351 Observ/hosp same date L1
[2023-04-27] MEDS: Acetaminophen 500 MG Tablet 1000 MG PO (23:52)
[2023-04-27] MEDS: Morphine 4 MG/ML Syringe IV (23:52)
[2023-04-27] MEDS: Ondansetron 4 MG/2 ML Vial IV (23:52)
[2023-04-27] MEDS: 0.9% Normal Saline (1000mL) 1,000 ML 999 ML IV (23:59)
[2023-04-28 00:01] VITALS: BP 112/68; PULSE 123; RESP 14; TEMP 38.3; O2SAT 93
[2023-04-28 02:07] VITALS: BP 119/64; PULSE 111; RESP 16; TEMP 37.1; O2SAT 96
[2023-04-28] MEDS: 0.9% Normal Saline (1000mL) 1,000 ML 150 ML IV ×2 (03:23→10:21)
[2023-04-28 07:00] VITALS: O2SAT 96
[2023-04-28 08:15] LABS: Absolute Lymphocyte Count 1.72 X10^3/uL (0.83-4.51); Absolute Neutrophil Count 5.9 X10^3/uL (2.0-7.7); Basophil# 0.04 X10^3/uL; Basophil% 0.5 % (0-1); Eosinophil# 0.15 X10^3/uL; Eosinophils% 1.7 % (0-5); Hemoglobin 14.7 g/dL (13.0-16.5); Lymphocyte # 1.72 X10^3/ul (0.83-4.51); Lymphocyte % 19.5 % (19-41); Mean Corp Hgb Conc 34.2 g/dL (32-36); Mean Corpuscular Hgb 30.4 pg (27.0-32.0); Mean Corpuscular Volume 88.8 fL (80-94); Monocyte% 11.3 % (0-10); NRBC Flagged by Analyzer 0 % (0-5); Neutrophil % 66.8 % (47-70); Platelet Count 212 K/mm3 (150-450); RBC Distribution Width CV 12.9 % (11.6-14.6); RBC Distribution Width SD 42.2 fl (35.1-43.9); Red Blood Count 4.84 M/mm3 (4.6-6.2); White Blood Count 8.8 K/mm3 (4.4-11.0)
[2023-04-28 08:39] VITALS: BP 103/68; PULSE 98; RESP 14; TEMP 36.9; O2SAT 93
[2023-04-28 09:16] LABS: AST(SGOT) 15 U/L (15-37); Alanine Aminotransfer ALT/SGPT 50 U/L (16-61); Albumin, Serum 3.1 g/dL (3.2-5.0); Alkaline Phosphatase 64 U/L (45-117); Anion Gap 3 (5-15); BUN 6 mg/dL (7-18); BUN/Creat Ratio 6.4 RATIO (10-20); Calcium,Total 7.9 mg/dL (8.5-10.1); Chloride 111 mmol/L (98-107); Creatinine, Serum 0.93 mg/dL (0.70-1.30); EST Glomerular Filtration Rate 96 mL/min (>60); Est Glom Filt Rate - Afr Amer 117 mL/min (>60); Globulin 3.1 g/dL (2.2-4.2); Glucose 106 mg/dL (74-106); Potassium 3.8 mmol/L (3.5-5.1); Protein, Total 6.2 g/dL (6.4-8.2); Sodium Level 140 mmol/L (136-145); Thyroid Stim Hormone (TSH) 1.28 uIU/mL (0.358-3.74)
[2023-04-28] MEDS: Venlafaxine XR 37.5 MG Capsule PO (10:43)
[2023-04-28] MEDS: Enoxaparin 40 MG/0.4 ML Syringe SC (10:43)
[2023-04-28] MEDS: Pantoprazole Sodium 20 MG Tablet PO (11:57)
[2023-04-28 14:30] VITALS: BP 129/74; PULSE 85; RESP 14; TEMP 36.7; O2SAT 97
[2023-04-28 15:26] VITALS: BP 129/74; PULSE 85; RESP 14; TEMP 36.7; O2SAT 97
--- NOTE | 2023-04-28 16:22 | PCM.DC ---
Discharge Instructions Diet Discharge Diet: No restrictions Activity Discharge Activity: Return to Normal Activity Weight Bearing Status: Full weight bearing Follow Up Care Test Results: Test results from this visit will be discussed in further detail at your follow-up appointment, if applicable. Discharge Plan Admission Admit Date/Time: 04/28/23 00:08 Primary Reason for Your Visit: Gastroenteritis Attending Provider: Niraj Currie Primary Care Provider: [facility] Naheed Grewal Consulting Providers: Israel Lim Instructions Additional Instructions / Restrictions: You will be notified concerning your stool culture results Discharge Orders/Prescriptions Prescriptions: Continued escitalopram oxalate 20 mg tablet 20 mg PO DAILY Hold Instructions: changed to a new med pantoprazole [Protonix] 40 mg tablet,delayed release (DR/EC) 40 mg PO BID Qty: 120 1RF Hold Instructions: not taking anymore Rx Instructions: take one pill twice a day for 2 months, then take once a day in the morning Linzess 290 mcg capsule 290 mcg PO QAM Qty: 90 3RF Hold Instructions: not taking esomeprazole magnesium [Nexium] 20 mg capsule,delayed release(DR/EC) 20 mg PO DAILY desvenlafaxine succinate 50 mg tablet extended release 24 hr 50 mg PO DAILY Patient Comments: TAKE 1 TABLET BY MOUTH EVERY DAY [facility] - See Referral Note (At next appointment time) Disposition Disposition (needs filled in before D/C Order can be placed): Home, Self Care
--- NOTE | 2023-04-28 16:28 | PCM.DC.SUM ---
Providers Date of Admission: 04/28/23 Date of Discharge: 04/28/23 Primary Care Physician: Naheed [facility] Reason For Visit: VIRAL GASTROENTERITIS Diagnosis Discharge Diagnosis (1) Viral gastroenteritis: Status: Acute Code(s): A08.4 - Viral intestinal infection, unspecified (2) Diarrhea: Status: Acute Code(s): R19.7 - Diarrhea, unspecified Qualifiers: Diarrhea type: presumed infectious Qualified Code(s): R19.7 - Diarrhea, unspecified (3) Abdominal pain, acute: Status: Acute Code(s): R10.9 - Unspecified abdominal pain (4) Acute febrile illness: Status: Acute Code(s): R50.9 - Fever, unspecified Plan Final diagnosis #1 viral gastroenteritis Medications at Discharge Home Medications escitalopram oxalate 20 mg tablet 20 mg PO DAILY 09/02/21 pantoprazole 40 mg tablet,delayed release (Protonix) 40 mg PO BID #120 tabs 10/10/21 linaclotide 290 mcg capsule (Linzess) 290 mcg PO QAM #90 caps 11/21/21 desvenlafaxine succinate 50 mg tablet,extended release 24 hr 50 mg PO DAILY mental health 04/27/23 esomeprazole magnesium 20 mg capsule,delayed release (Nexium) 20 mg PO DAILY reflux 04/27/23 Hospital Course Operations None Procedures None Summary of Care Provided Minutes Spent on Discharge: 30 Hospital Course: This 37-year-old white male was seen in the emergency room [facility] with complaints of fever and diarrhea. Labs done in the emergency room showed an elevated white blood cell count and his hemoglobin was 16.7. Patient's temperature was 100.4 orally, he also complained of right-sided abdominal pain and he was tachycardic. Patient was given IV fluids and was placed into observation status on PCU, cultures of the stool were negative for enteric pathogens, patient did not have any diarrhea in the hospital, he was given IV fluids. On 04/28/2023, patient was seen and examined: On examination he appeared in good health and spirits. Vital signs as documented. Skin warm and dry and without overt rashes. Neck without JVD, neck was supple, trachea midline, thyroid was normal. Lungs clear bilaterally, normal air movement was noted. Heart exam notable for regular rhythm, normal sounds and absence of murmurs, rubs or gallops. Abdomen unremarkable and without evidence of organomegaly, masses, or abdominal aortic enlargement. Bowel sounds are present, abdomen is not distended. Extremities nonedematous, no cyanosis was noted, no clubbing was noted. Neuro: Cranial nerves II through XII are grossly intact, no focal motor deficits were noted, sensation to light touch and pinprick intact, motor exam 5/5 throughout. Psych: Patient is alert and oriented x3, he does not appear anxious or depressed, he does not appear agitated. On 04/28/2023 patient was seen and examined and felt to be in stable condition for discharge home. Weight / BMI Weight Weight: 95.1 kg Body Mass Index (BMI) 30.0 ABG / Lab / Microbiology Data 04/28/23 07:55 04/28/23 07:55 Laboratory: Laboratory Results - last 24 hr 04/27/23 19:47: WBC 15.3 H, RBC 5.69, Hgb 16.7 H, Hct 49.2, MCV 86.5, MCH 29.3, MCHC 33.9, RDW Std Deviation 39.8, RDW Coeff of Andrey 12.7, Plt Count 270, MPV 10.0, Immature Gran % (Auto) 0.300, Neut % (Auto) 89.0 H, Lymph % (Auto) 4.8 L, [place] % (Auto) 5.5, Eos % (Auto) 0.1, Baso % (Auto) 0.3, Absolute Neuts (auto) 13.7 H, Absolute Lymphs (auto) 0.73 L, Nucleated RBC % 0, Sodium 137, Potassium 3.6, Chloride 104, Carbon Dioxide 27.0, Anion Gap 6, BUN 11, Creatinine 1.20, Estim Creat Clear Calc 86.18, Est GFR (MDRD) Af Amer 87, Est GFR (MDRD) Non-Af 72, BUN/Creatinine Ratio 9.2 L, Glucose 112 H, Calcium 9.0, Total Bilirubin 0.80, AST 23, ALT 72 H, Alkaline Phosphatase 82, Total Protein 7.5, Albumin 3.9, Globulin 3.6, Albumin/Globulin Ratio 1.1 04/27/23 19:48: Urine Color Yellow, Urine Clarity Clear, Urine pH 6.5, Ur Specific [place] 1.015, Urine Protein 15 H, Urine Glucose (UA) Normal, Urine Ketones 5 H, Urine Occult Blood Negative, Urine Nitrite Negative, Urine Bilirubin 1 H, Urine Urobilinogen 4 H, Ur Leukocyte Esterase 25 H, Urine RBC 0 SEEN, Urine WBC 0-5 SEEN, Ur Squamous Epith Cells 0 SEEN, Urine Bacteria 0 SEEN, Urine Mucus 1+ 04/28/23 07:55: WBC 8.8, RBC 4.84, Hgb 14.7, Hct 43.0, MCV 88.8, MCH 30.4, MCHC 34.2, RDW Std Deviation 42.2, RDW Coeff of Andrey 12.9, Plt Count 212, MPV 10.0, Immature Gran % (Auto) 0.200, Neut % (Auto) 66.8, Lymph % (Auto) 19.5, [place]. [place] % (Auto) 11.3 H, Eos % (Auto) 1.7, Baso % (Auto) 0.5, Absolute Neuts (auto) 5.9, Absolute Lymphs (auto) 1.72, Nucleated RBC % 0, Sodium 140, Potassium 3.8, Chloride 111 H, Carbon Dioxide 26.0, Anion Gap 3 L, BUN 6 L, Creatinine 0.93, Estim Creat Clear Calc 111.20, Est GFR (MDRD) Af Amer 117, Est GFR (MDRD) Non-Af 96, BUN/Creatinine Ratio 6.4 L, Glucose 106, Calcium 7.9 L, Phosphorus 3.0, Total Bilirubin 0.60, AST 15, ALT 50, Alkaline Phosphatase 64, Total Protein 6.2 L, Albumin 3.1 L, Globulin 3.1, Albumin/Globulin Ratio 1.0, TSH 1.28 Microbiology: Microbiology 04/28/23 14:46 Stool Stool Lactoferrin - Final 04/27/23 14:46 Stool Stool Occult Blood (DOMINIQUE) - Final Occult Blood Positive 04/27/23 21:45 Nasal Secretion SARS-CoV-2 & FLU Antigen (Rapid) - Final Radiography Diagnostic Testing: Radiology Impression Abdomen/Pelvis CT 04/27/23 21:07 IMPRESSION: 1. No evidence of acute appendicitis or other acute visceral pathology in the abdomen and pelvis. 2. Fatty liver. Electronically Signed: Regulo Negrete DO at 21:35 EST , Chest X-Ray 04/27/23 22:15 IMPRESSION: No radiographic evidence of acute cardiopulmonary disease. Electronically Signed: Regulo Negrete DO at 22:41 EST , D/C Instructions Discharge Diet: No restrictions Weight Bearing Status: Full weight bearing Meaningful Use Info Meaningful Use Diagnoses (Choose all that apply): None applicable Discharge Plan Admission Admit Date/Time: 04/28/23 00:08 Primary Reason for Your Visit: Gastroenteritis Attending Provider: Niraj Currie [facility] Providers: Israel Lim Instructions Additional Instructions / Restrictions: You will be notified concerning your stool culture results Discharge Orders/Prescriptions Prescriptions: Continued escitalopram oxalate 20 mg tablet 20 mg PO DAILY Hold Instructions: changed to a new med pantoprazole [Protonix] 40 mg tablet,delayed release (DR/EC) 40 mg PO BID Qty: 120 1RF Hold Instructions: not taking anymore Rx Instructions: take one pill twice a day for 2 months, then take once a day in the morning Linzess 290 mcg capsule 290 mcg PO QAM Qty: 90 3RF Hold Instructions: not taking esomeprazole magnesium [Nexium] 20 mg capsule,delayed release(DR/EC) 20 mg PO DAILY desvenlafaxine succinate 50 mg tablet extended release 24 hr 50 mg PO DAILY Patient Comments: TAKE 1 TABLET BY MOUTH EVERY DAY [facility] - See Referral Note (At next appointment time) Disposition Disposition (needs filled in before D/C Order can be placed): Home, Self Care Charges/Coding Visit Charges Inpatient E&M: 21800 Disch Hosp
== END 2023-04-28 16:28 | disposition home or self-care (01) ==
LOC: ED 23:37 → PCU 04-28 02:12
PROVIDERS: Admitting Provider Internal Medicine; Emergency Provider Emergency Medicine; Visit Provider Internal Medicine
DX: A08.4 Viral intestinal infection, unspecified (principal); R16.0 Hepatomegaly, not elsewhere classified; K76.0 Fatty (change of) liver, not elsewhere classified; K21.9 Gastro-esophageal reflux disease without esophagitis; Z20.822 Contact with and (suspected) exposure to COVID-19; R00.0 Tachycardia, unspecified; K44.9 Diaphragmatic hernia without obstruction or gangrene; F41.8 Other specified anxiety disorders; Z79.899 Other long term (current) drug therapy; E66.9 Obesity, unspecified; Z68.30 Body mass index [BMI] 30.0-30.9, adult; K59.09 Other constipation
CPT/HCPCS: 36415; 71045; 74177; 80053; 81001; 82274; 83630; 84100; 84443; 85025; 87428; 87506; 93005; 96361; 96372; 96374; 96375; 99221; 99283; J7030; Q9967; G0378; J2405

== ENCOUNTER → 2024-05-25 | Outpatient (CLI) | payer MEDICAID, SELFPAY ==
--- NOTE | 2024-05-25 11:29 | NM_ITS ---
CLINICAL: 38-year-old male with history of gastroesophageal reflux disease and abdominal pain. SEMI-SOLID PHASE 99m Tc SULFUR COLLOID GASTRIC EMPTYING STUDY COMPARISON: None available. FINDINGS: The patient was administered 1.2 mCi of 99m Tc sulfur colloid mixed with oatmeal and consumed per os. Image acquisitions in the anterior-posterior projections were obtained for 60 minutes. There is prompt visualization of the stomach. There is no gastroesophageal reflux identified. The T ? linear fit was calculated to be 28.47 minutes, (Normal: 12-56 minutes). NM/Gastric Emptying Study IMPRESSION: 1. NORMAL 99m Tc sulfur colloid semi-solid phase (oatmeal) gastric emptying imaging examination. A. There is normal and preserved semi-solid phase gastric emptying compared to normal controls with maintained first order kinetics throughout all components of the examination. (Miles et al, J Nucl Med Tech 38: 186, 2010). Electronically Signed: Vicente Boateng DO at 12:56 EST ,
== END | disposition home or self-care (01) ==
PROVIDERS: Referring Provider Internal Medicine Gastroenterology; Visit Provider Internal Medicine Gastroenterology
DX: K21.9 Gastro-esophageal reflux disease without esophagitis (principal); R10.9 Unspecified abdominal pain
CPT/HCPCS: 78264; A9541

== ENCOUNTER 2024-05-31 07:43 | Day surgery (SDC) | payer MEDICAID, SELFPAY ==
[2024-05-31] VITALS (7 sets, daily range): BP systolic 110–125; BP diastolic 66–82; PULSE 80–110; RESP 16–18; TEMP 36.1–36.6; O2SAT 87–95; BMI 29.5
--- NOTE | 2024-05-31 07:58 | PRE.ANES_ITS ---
ASA Classification* ASA Classification ASA Classification: 2 Assessment & Plan Anesthesia* Anesthesia Assessment Anesthesia Assessment: Discussed sedation and/or anesthesia options, risks, benefits, and alternatives with patient/parents/legal guardian/POA. Questions invited. The patient/parents/legal guardian/POA seems to understand and agrees to proceed with anesthesia plan. Reviewed the physical assessment, medical history, allergy history and patient home medications list prior to surgery/procedure/anesthetic and documented any changes. Performed airway and anesthesia risk assessments. Anesthesia Type Anesthesia Type: MAC Anesthesia Focused Assessment* Airway Assessment Mouth opens: >3 cm Mallampati Score: II Focused Labs Anesthesia Preop lab: CBC WBC 8.8 K/mm3 (4.4-11.0) 04/28/23 07:55 RBC 4.84 M/mm3 (4.6-6.2) 04/28/23 07:55 Hgb 14.7 g/dL (13.0-16.5) 04/28/23 07:55 Hct 43.0 % (40-54) 04/28/23 07:55 Plt Count 212 K/mm3 (150-450) 04/28/23 07:55 CHEMISTRY Potassium 3.8 mmol/L (3.5-5.1) 04/28/23 07:55 Sodium 140 mmol/L (136-145) 04/28/23 07:55 Phosphorus 3.0 mg/dL (2.5-4.9) 04/28/23 07:55 BUN 6 mg/dL (7-18) L 04/28/23 07:55 Creatinine 0.93 mg/dL (0.70-1.30) 04/28/23 07:55 Glucose 106 mg/dL (74-106) 04/28/23 07:55 TSH 1.28 uIU/mL (0.358-3.74) 04/28/23 07:55 COAG PT 12.0 SECONDS (11.7-14.9) 10/10/21 15:47 Pre-Assessment Diagnosis/Proposed Procedure Planned Operative Procedure(s): EGD, CSCOPE Anesthesia History Anesthesia History - unix systems administrator: Anesthesia History - unix systems administrator Hx Hospitalization No 05/26/24 13:39 Any Problems With Anesthesia No 05/26/24 13:39 Cholinesterase deficiency No 05/26/24 13:39 You/Your Family Experience No 05/26/24 13:39 fever (hyperthermia) with Relationship Recent Exposure to Contagious Disease Does patient have nerve No 05/26/24 13:39 stimulator Patient instructed to have device shut off --Does patient have Pacemaker or ICD? When Was Last Pacemaker Check QUESTION #4 FULL TEXT: You/Your Family Experience fever (hyperthermia) with Anesthesia Last Oral Intake Last Oral intake: Last Oral Intake NPO since Meds taken in AM with sips of water? Meds patient instructed to take am of surgery PONV PONV - unix systems administrator: PONV - unix systems administrator Female No 05/26/24 13:39 HX of Motion Sickness No 05/26/24 13:39 HX of N/V After Surgery No 05/26/24 13:39 Non-Smoker Yes 05/26/24 13:39 Duration of Surgery greater No 05/26/24 13:39 than 60 minutes Number of Risk Factors 1 05/26/24 13:39 PONV Score Low Risk 05/26/24 13:39 Height & Weight Height & Weight: Anesthesia: Height & Weight Height 5 ft 10 in 04/28/23 02:07 Respiratory Assessment Respiratory Assessment - unix systems administrator: Respiratory Tract Infection Hx - unix systems administrator Hx Respiratory Tract Infection No 05/26/24 13:39 STOP Sleep Apnea STOP Sleep Apnea - unix systems administrator: STOP Sleep Apnea - unix systems administrator Hx Hypertension No 05/26/24 13:39 Hx Sleep Apnea No 05/26/24 13:39 CPAP BIPAP Do you snore loudly (louder No 05/26/24 13:39 than talking or can be heard Do you often feel tired/ No 05/26/24 13:39 fatigued/ sleepy during daytime? Has anyone observed you stop No 05/26/24 13:39 breathing during sleep? STOP Results Negative 05/26/24 13:39 QUESTION #5 FULL TEXT : Do you snore loudly (louder than talking or can be heard through closed doors)? Tobacco Use History Tobacco Use History - unix systems administrator: Tobacco Use History - unix systems administrator Tobacco Use Smoking Status Never smoker 05/26/24 13:39 Hx Tobacco Use No 05/26/24 13:39 Years Smoking Packs Smoked per Day Smoking Cessation Date was within the last 15 years Hx Smoking Cessation Date Hx Smoking Cessation Counseling Hematologic Medial History Hematologic Hx - unix systems administrator: Hematologic Medical Hx - supervising nurse Hx of Blood Transfusion No 05/26/24 13:39 Hx of Transfusion in last 3 No 05/26/24 13:39 Months Date of Last Transfusion (if within last 3 months) Ever experience any problems No 05/26/24 13:39 with transfusion(s)? Specify any problems Hx of Preganancy in last 3 N/A 05/26/24 13:39 Months Nurse Filling Out Transfusion NBUCHER 05/26/24 13:39 & Questions: Date: 05/26/24 05/26/24 13:39 Time: 13:40 05/26/24 13:39 Patient unable to answer at this time (ie. confused, unrespo /Reproduction History /Reproductive History - unix systems administrator: /Reproductive Hx- unix systems administrator Hx Now No 05/26/24 13:39 Gestational Age (in weeks): EDC: Hx Hx Para Hx Section SAB No 05/26/24 13:39 PFSH Medical History Depression Non-smoker Anxiety History of Helicobacter pylori infection Xiphoid prominence Constipation Fatty liver H. pylori infection Hepatomegaly Home Medications ?Medication ?Instructions ?Recorded ?Last Taken ?Type desvenlafaxine succinate 50 mg 50 mg PO DAILY mental health 04/27/23 Unknown History tablet,extended release 24 hr esomeprazole magnesium 20 mg 20 mg PO DAILY reflux 04/27/23 Unknown History capsule,delayed release (Nexium) Allergy/AdvReac Type Severity Reaction Status Date / Time No Known Allergies Allergy Verified 05/26/24 13:38 Surgical History H/O arthroscopy of shoulder History of endoscopy History of colonoscopy Social History Smoking Status: Never smoker Review of Systems (Anesthesia) ROS Narrative System reviewed and no additional complaints, except as documented.
--- NOTE | 2024-05-31 08:13 | PCM.HP.STD ---
HPI - General General Date of Admission: 05/31/24 Date of Service: 05/31/24 Chief Complaint: Gerd , Abdominal pain, Anemia HPI Narrative ASHA MARTÍNEZ, is a 38 M who presents to the office today for follow up. abd/pelvis CT 04.27.23 1. No evidence of acute appendicitis or other acute visceral pathology in the abdomen and pelvis. 2. Fatty liver OV 04.21.24 pt reports that he is having a daily bm; endorses blood in his stool with every bm. Pt reports that he was at an ER in [place] a few weeks ago and they did a rectal exam and stated that he did not have any hemorrhoids or fissures. Pt reports constant periumbilical abd pain that he describes as a burning feeling. Pt reports HB when he is up and down a lot, continues with Nexium. [facility] Medical History Depression Non-smoker Anxiety History of Helicobacter pylori infection Xiphoid prominence Constipation Fatty liver H. pylori infection Hepatomegaly Home Medications ?Medication ?Instructions ?Recorded ?Last Taken ?Type desvenlafaxine succinate 50 mg 50 mg PO DAILY mental health 04/27/23 Unknown History tablet,extended release 24 hr esomeprazole magnesium 20 mg 20 mg PO DAILY reflux 04/27/23 Unknown History capsule,delayed release (Nexium) Allergy/AdvReac Type Severity Reaction Status Date / Time No Known Allergies Allergy Verified 05/31/24 08:09 Surgical History H/O arthroscopy of shoulder History of endoscopy History of colonoscopy Social History Smoking Status: Never smoker ROS Constitutional Constitutional: Denies fatigue, fever(s), poor appetite, weight gain or weight loss Gastrointestinal Gastrointestinal: Denies belching, bloating, change in bowel habits, change in stool character, chewing difficulty, coffee ground emesis, constipation, cramping, diarrhea, dyspepsia, dysphagia, early satiety, excessive flatus, fecal incontinence, heartburn, hematemesis, hematochezia, hemorrhoids, loose stools, melena, nausea, odynophagia, rectal bleeding, tenesmus, vomiting or weight changes Physical Exam Const alert, oriented x3, no apparent distress and healthy appearing General Appearance: cooperative GI normal to inspection, nondistended, normoactive bowel sounds, soft to palpation, non-tender and non-distended Percussion: normal to percussion Rectal Exam: deferred Assessment & Plan Assessment/Plan (1) Lower GI bleed: (2) NAFLD (nonalcoholic fatty liver disease): (3) Irritable bowel syndrome with constipation: (4) Hiatal hernia: PLAN: Assessment and Plan Assessment and Plan (1) Irritable bowel syndrome with constipation: Status: Acute Plan: He is doing okay with drinking coffee. However I think the coffee that he drinks in excess is causing a lot of upper GI symptoms such as refractory reflux disease. (2) GERD (gastroesophageal reflux disease): Status: Acute Plan: Completed 2 mos of BID pantoprazole 40 mg then he was down to once a day pantoprazole and now has not taken anything at this time. He does not know if he has a hiatal hernia. I went over refractory reflux disease and explained that is very similar to hypertension. Some people produce more acid but I think it is mostly the consumption of coffee that he was drinking that requires more acid production that is contributing to a lot of his symptoms. We will get a wireless pH monitor since he is off of medical therapy for reflux at this time. (3) NAFLD (nonalcoholic fatty liver disease): Status: Acute Plan: Reviewed results with pt, F0-F1 fibrosis, recommend wt loss, his hgb a1c is good, I don't have lipids for him. Will need to monitor over time to ensure no progression. (4) History of Helicobacter pylori infection: Status: Acute Plan: When we placed the wireless pH monitor we will rebiopsy is stomach to make sure he cleared the H. pylori infection (5) Xiphoid prominence: Status: Acute Plan: Will refer to PT (6) Xiphoid pain: Status: Acute (7) Lower GI bleed: Status: Acute Plan: The differential diagnosis for lower GI bleeding in him would be an anal fissure, internal hemorrhoids, diverticular disease. He does not have any external hemorrhoids on exam. He will undergo colonoscopy with possible banding and/or cauterization. Coding Level of Care Code Off vis,est,level 4 Diagnoses Irritable bowel syndrome with constipation K58.1 GERD (gastroesophageal reflux disease) K21.9 NAFLD (nonalcoholic fatty liver disease) K76.0 History of Helicobacter pylori infection Z86.19 Xiphoid prominence R29.898 Xiphoid pain R07.89 Lower GI bleed K92.2
--- NOTE | 2024-05-31 09:00 | COLBX_PTH ---
PATIENT: ASHA MARTÍNEZ LOC: EN U#:[id number] AGE/SX: 38/M ROOM: RE05/31/[address]: Dr. Slim Corbin DO : 1985 BED: DIS: 05/31/2024 SPEC #: [id number] RECD: 05/31/24 11:36 STATUS: ERNIE REYeison #: [id number] CALEB: 05/31/24 09:[address]: Slim Corbin DEPT: SURGICAL PATHOLOGY RECD BY: Sayra Ackerman ENTERED: 05/31/24 14:17 SP TYPE: COLON BX OTHR DR: Naheed [facility] Tissues: A - Duodenum, NOS B - Ileum, NOS Procedures: Surgery Specimen Level IV HEADER OPERATION: Colonoscopy, ERD, biopsy, hemorrhoid banding PRE-OP DIAGNOSIS: Irritable bowel syndrome with constipation GERD, NAFLD, history of Helicobacter pylori infection, Xiphoid prominence and pain, lower GI bleed TISSUE SUBMITTED: A. Duodenum, B. Terminal ileum MICROSCOPIC DIAGNOSIS A. Duodenum, biopsy: Fragments of duodenal mucosa, no pathologic diagnosis. B. Terminal ileum, biopsy: Fragments of small intestinal mucosa, no pathologic diagnosis. 06/02/2024 MICROSCOPIC DESCRIPTION Slides are reviewed. GROSS DESCRIPTION A. Received is one container labeled with the patient name and designated duodenum. The specimen consists of two irregular fragments of light beach soft tissue that in aggregate measure 1 x 0.2 x 0.1 cm. The specimen is totally submitted in one cassette. B. Received is one container labeled with the patient name and designated terminal ileum. The specimen consists of multiple irregular fragments of light beach soft tissue that in aggregate measure 1 x 0.2 x 0.1 cm. The specimen is totally submitted in one cassette. /MS:carlyn 05/31/24 TC:4 CPT: 39358 x2
--- NOTE | 2024-05-31 09:31 | OP.CCLET_ITS ---
[facility] This procedure was performed on Friday, May 31, 2024. My impressions and recommendations are as follows: Impressions : - LA Grade C reflux esophagitis with no bleeding. - Medium-sized hiatal hernia. - Small (< 5 mm) esophageal varices. - Chronic duodenitis. Biopsied. Recommendations : - Discharge patient to home. - Resume previous diet. - Continue present medications. - Await pathology results. My findings are described in the full procedure note, which is enclosed. If I can be of further assistance, please feel free to contact me at . Sincerely, Slim Corbin, 05/31/2024 9:30:39 AM This report has been signed electronically.
--- NOTE | 2024-05-31 09:31 | OP.EGD_ITS ---
Patient Name: Robby Schulte Procedure Date: 05/31/2024 8:48 AM Date of : 1985 Age: 38 Procedure: Upper GI endoscopy Indications: Heartburn, Esophageal reflux Providers: Slim Corbin DO Referring MD: Naheed Epps [facility] Medicines: Monitored Anesthesia Care Patient Profile: This is a 38 year old male. Refer to note in patient chart for documentation of history and physical. Patient has symptoms of chronic dyspepsia, chronic heartburn and chronic nausea. Complications: No immediate complications. Procedure: Pre-Anesthesia Assessment: - Prior to the procedure, a History and Physical was performed, and patient medications and allergies were reviewed. The patient is competent. The risks and benefits of the procedure and the sedation options and risks were discussed with the patient. All questions were answered and informed consent was obtained. Patient identification and proposed procedure were verified by the physician in the pre-procedure area. Mental Status Examination: alert and oriented. Airway Examination: normal oropharyngeal airway and neck mobility. Respiratory Examination: clear to auscultation. CV Examination: normal. Prophylactic Antibiotics: The patient does not require prophylactic antibiotics. Prior Anticoagulants: The patient has taken no anticoagulant or antiplatelet agents except for NSAID medication. ASA Grade Assessment: II - A patient with mild systemic disease. After reviewing the risks and benefits, the patient was deemed in satisfactory condition to undergo the procedure. The anesthesia plan was to use monitored anesthesia care (MAC). Immediately prior to administration of medications, the patient was re-assessed for adequacy to receive sedatives. The heart rate, respiratory rate, oxygen saturations, blood pressure, adequacy of pulmonary ventilation, and response to care were monitored throughout the procedure. The physical status of the patient was re-assessed after the procedure. After obtaining informed consent, the endoscope was passed under direct vision. Throughout the procedure, the patient's blood pressure, pulse, and oxygen saturations were monitored continuously. The Colonoscope was introduced through the mouth, and advanced to the second part of duodenum. The upper GI endoscopy was accomplished without difficulty. The patient tolerated the procedure well. Scope In: 9:00:05 AM Scope Out: 9:04:09 AM Total Procedure Duration Time 0 hours 4 minutes 4 seconds Findings: LA Grade C (one or more mucosal breaks continuous between tops of 2 or more mucosal folds, less than 75% circumference) esophagitis with no bleeding was found 35 to 39 cm from the incisors. A medium-sized hiatal hernia was present. Small (< 5 mm) varices were found in the upper third of the esophagus, in the middle third of the esophagus and in the lower third of the esophagus. They were 5 mm in largest diameter. Patchy mild inflammation characterized by erythema was found in the duodenal bulb. Biopsies were taken with a cold forceps for histology. Verification of patient identification for the specimen was done. Estimated blood loss was minimal. Impression: - LA Grade C reflux esophagitis with no bleeding. - Medium-sized hiatal hernia. - Small (< 5 mm) esophageal varices. - Chronic duodenitis. Biopsied. Recommendation: - Discharge patient to home. - Resume previous diet. - Continue present medications. - Await pathology results. Procedure Code(s): --- Professional --- 05241, Esophagogastroduodenoscopy, flexible, transoral; with biopsy, single or multiple CPT copyright 2021 [employer]. All rights reserved. The codes documented in this report are preliminary and upon data coder operator review may be revised to meet current compliance requirements. Slim Corbin DO 05/31/2024 9:30:39 AM This report has been signed electronically. Number of Addenda: 0 Note Initiated On: 05/31/2024 8:48 AM
--- NOTE | 2024-05-31 09:35 | PCM.POST.ANE ---
Anesthesia: Postop Eval I Current Vital Signs Temperature: 97.3 F Pulse Rate: 94 Blood Pressure: 115/66 Respiratory Rate: 18 Pulse Ox: 94 Oxygen Delivery Method: Nasal Cannula Oxygen Flow Rate (L/min): 2 Assessment Airway patent: Yes Spontaneous unlabored respirations: Yes Mental status: Awake nausea: No Vomiting: No Anesthesia Complication: No Fluid Hydration Crystalloid volume administer (ml): 75 Total IV fluid infused: 75 Progress Note Anesthesia document: Postop Eval 1 completed: Yes
--- NOTE | 2024-05-31 09:39 | OP.COLON_ITS ---
Patient Name: Robby Schulte Procedure Date: 05/31/2024 9:04 AM Date of : 1985 Age: 38 Procedure: Colonoscopy Indications: Hematochezia Providers: Slim Corbin DO Referring MD: Naheed Epps [facility] Medicines: Monitored Anesthesia Care Patient Profile: This is a 38 year old male. Refer to note in patient chart for documentation of history and physical. Patient has symptoms of chronic dyspepsia, chronic heartburn and chronic nausea. Last Colonoscopy: none. The patient's first colonoscopy is today. Complications: No immediate complications. Procedure: Pre-Anesthesia Assessment: - Prior to the procedure, a History and Physical was performed, and patient medications and allergies were reviewed. The patient is competent. The risks and benefits of the procedure and the sedation options and risks were discussed with the patient. All questions were answered and informed consent was obtained. Patient identification and proposed procedure were verified by the physician in the pre-procedure area. Mental Status Examination: alert and oriented. Airway Examination: normal oropharyngeal airway and neck mobility. Respiratory Examination: clear to auscultation. CV Examination: normal. Prophylactic Antibiotics: The patient does not require prophylactic antibiotics. Prior Anticoagulants: The patient has taken no anticoagulant or antiplatelet agents except for NSAID medication. ASA Grade Assessment: II - A patient with mild systemic disease. After reviewing the risks and benefits, the patient was deemed in satisfactory condition to undergo the procedure. The anesthesia plan was to use monitored anesthesia care (MAC). Immediately prior to administration of medications, the patient was re-assessed for adequacy to receive sedatives. The heart rate, respiratory rate, oxygen saturations, blood pressure, adequacy of pulmonary ventilation, and response to care were monitored throughout the procedure. The physical status of the patient was re-assessed after the procedure. After I obtained informed consent, the scope was passed under direct vision. Throughout the procedure, the patient's blood pressure, pulse, and oxygen saturations were monitored continuously. The Colonoscope was introduced through the anus and advanced to the terminal ileum. The colonoscopy was performed without difficulty. The patient tolerated the procedure well. The quality of the bowel preparation was adequate. The terminal ileum, ileocecal valve, appendiceal orifice, and rectum were photographed. Scope In: 9:08:44 AM Scope Withdrawal Time 0 hours 12 minutes 13 seconds Scope Out: 9:23:45 AM Total Procedure Duration Time 0 hours 15 minutes 1 second Findings: Hemorrhoids were found on perianal exam. Bleeding external and internal hemorrhoids were found during perianal exam. The hemorrhoids were Grade II (internal hemorrhoids that prolapse but reduce spontaneously). The endoscope was withdrawn. A hemorrhoid was isolated with anoscopy. The ShortShot ligator was positioned over the hemorrhoid at the left lateral position. Suction was applied and one rubber band was placed over the hemorrhoid. This was checked to make certain that the muscularis was free of the band. Post-banding digital rectal exam showed band in good position. There were no complications. 3 mm, non-bleeding rectal varices were found. A few small-mouthed diverticula were found in the recto-sigmoid colon and sigmoid colon. Stool was found in the recto-sigmoid colon, in the sigmoid colon, in the descending colon and at the splenic flexure. A patchy area of the terminal ileum was congested. Biopsies were taken with a cold forceps for histology. Verification of patient identification for the specimen was done. Estimated blood loss was minimal. Impression: - Hemorrhoids found on perianal exam. - Bleeding external and internal hemorrhoids. Banded. - Rectal varices. - Diverticulosis in the recto-sigmoid colon and in the sigmoid colon. - Stool in the recto-sigmoid colon, in the sigmoid colon, in the descending colon and at the splenic flexure. - Congested mucosa in the terminal ileum. Biopsied. Recommendation: - Discharge patient to home. - Resume previous diet. - Continue present medications. - Await pathology results. - Repeat colonoscopy in 5 years for surveillance. Procedure Code(s): --- Professional --- 10972, Colonoscopy, flexible; with biopsy, single or multiple 13666, Hemorrhoidectomy, internal, by rubber band ligation(s) CPT copyright 2021 [employer]. All rights reserved. The codes documented in this report are preliminary and upon wilderness guide review may be revised to meet current compliance requirements. Slim Corbin DO 05/31/2024 9:38:35 AM This report has been signed electronically. Number of Addenda: 0 Note Initiated On: 05/31/2024 9:04 AM
--- NOTE | 2024-05-31 09:39 | OP.CCLET_ITS ---
05[facility]31/2024 [facility] for [facility]by Doll [facility] This procedure was performed on Friday, May 31, 2024. My impressions and recommendations are as follows: Impressions : - Hemorrhoids found on perianal exam. - Bleeding external and internal hemorrhoids. Banded. - Rectal varices. - Diverticulosis in the recto-sigmoid colon and in the sigmoid colon. - Stool in the recto-sigmoid colon, in the sigmoid colon, in the descending colon and at the splenic flexure. - Congested mucosa in the terminal ileum. Biopsied. Recommendations : - Discharge patient to home. - Resume previous diet. - Continue present medications. - Await pathology results. - Repeat colonoscopy in 5 years for surveillance. My findings are described in the full procedure note, which is enclosed. If I can be of further assistance, please feel free to contact me at . Sincerely, Slim Corbin, 05/31/2024 9:38:35 AM This report has been signed electronically.
--- NOTE | 2024-05-31 15:07 | PCM.POSTANE2 ---
Anesthesia Postop Eval I Sum Postop Eval Completion status Anesthesia document: Postop Eval 1 completed: Yes Anesthesia Postop Eval I Summary Anesthesia Postop Eval I Summary: Anesthesia Postop Eval I: Assessment Summary Airway patent Yes 05/31/24 09:36 [email or web address] Spontaneous unlabored Yes 05/31/24 09:36 [email or web address] respirations Mental status Awake 05/31/24 09:36 [email or web address] nausea No 05/31/24 09:36 [email or web address] Vomiting No 05/31/24 09:36 [email or web address] Anesthesia Postop Eval I: Fluid Summary Crystalloid volume administer 75 05/31/24 09:36 [email or web address] (ml) Colloids volume administered ( ml) Blood Product volume administered (ml) Total IV fluid infused 75 05/31/24 09:36 [email or web address] Anesthesia Postop Eval I: Summary Notes Anesthesia Complication No 05/31/24 09:36 [email or web address] Anesthesia Complication Comment: Post-operative progress note Anesthesia: Postop Eval II Evaluation Mental status: Awake and Calm Pain Level: 0 nausea: No Vomiting: No Complications Anesthesia Complication: No
== END 2024-05-31 10:43 | disposition home or self-care (01) ==
LOC: EN 07:44 → AC 07:45
PROVIDERS: Visit Provider Internal Medicine Gastroenterology
PROC: 0DJD8ZZ Inspection of Lower Intestinal Tract, Via Natural or Artificial Opening Endoscopic (ICD-10-PCS; CPT 45378; principal; 2024-05-31 08:55)
DX: K64.5 Perianal venous thrombosis (principal); I85.00 Esophageal varices without bleeding; K44.9 Diaphragmatic hernia without obstruction or gangrene; K21.00 Gastro-esophageal reflux disease with esophagitis, without bleeding; D64.9 Anemia, unspecified; K76.0 Fatty (change of) liver, not elsewhere classified; K57.30 Diverticulosis of large intestine without perforation or abscess without bleeding; K64.1 Second degree hemorrhoids; K29.80 Duodenitis without bleeding; K58.1 Irritable bowel syndrome with constipation; Z86.19 Personal history of other infectious and parasitic diseases; R29.898 Other symptoms and signs involving the musculoskeletal system; R07.89 Other chest pain; K92.2 Gastrointestinal hemorrhage, unspecified; I86.8 Varicose veins of other specified sites
CPT/HCPCS: 45380; 45398; 43239; 88305; J2405